=== PATIENT | female | born 1940 | race Caucasian/White ===

== ENCOUNTER 2019-05-20 10:19 | Outpatient (CLI) | payer MEDICARE ==
[2019-05-20 17:47] LABS: BASOPHILS % (AUTO) 0.9 %; EOSINOPHILS # (AUTO) 0.2 10^3/uL (0.0-0.7); HGB - HEMOGLOBIN 13.3 g/dL (12.0-16.0); LYMPHOCYTES # (AUTO) 2.1 10^3/uL (1.5-3.5); LYMPHOCYTES % (AUTO) 46.9 %; MEAN CORPUSCULAR HEMOGLOBIN 32.3 pg (27.0-31.0); MEAN CORPUSCULAR VOLUME 100.7 fL (81.0-99.0); MEAN PLATELET VOLUME 11.6 fL (7.9-10.8); MONOCYTES # (AUTO) 0.3 10^3/uL (0.0-1.0); NEUTROPHILS # (AUTO) 1.8 10^3/uL (1.5-6.6); PLT - PLATELET COUNT 166 10^3/uL (130-450); RED BLOOD COUNT 4.12 10^6/uL (4.20-5.40); RED CELL DISTRIBUTION WIDTH 12.9 % (12.0-15.0); WHITE BLOOD COUNT 4.6 x10^3/uL (4.8-10.8)
[2019-05-20 18:15] LABS: ALBUMIN 4.2 g/dL (3.2-5.5); ALBUMIN/GLOBULIN RATIO 1.6 (1.0-2.2); ALKALINE PHOSPHATASE 75 IU/L (42-121); ALT ALANINE AMINOTRANSFERASE 31 IU/L (10-60); AST ASPARTATE AMINOTRANSFERASE 28 IU/L (10-42); BILIRUBIN,TOTAL 0.9 mg/dL (0.2-1.0); BUN - BLOOD UREA NITROGEN 23 mg/dL (6-20); CALCIUM 9.8 mg/dL (8.5-10.3); CARBON DIOXIDE - CO2 27 mmol/L (21-32); CHLORIDE 108 mmol/L (101-111); CHOL/HDL RATIO 2.7 (<4.4); CHOLESTEROL 271 mg/dL; CREATININE 0.6 mg/dL (0.4-1.0); GFR - MDRD 96 (>89); GLUCOSE 99 mg/dL (70-100); HDL CHOLESTEROL 99 mg/dL; LDL CHOLESTEROL,CALCULATED 158 mg/dL; LDL/HDL RATIO 1.6 (<4.4); SODIUM 143 mmol/L (135-145); TOTAL PROTEIN 6.9 g/dL (6.7-8.2); VLDL CHOLESTEROL 14 mg/dL
[2019-05-20 18:19] LABS: THYROID STIMULATING HORMONE 1.15 uIU/mL (0.34-5.60)
[2019-05-20 18:21] LABS: FREE T4 (FREE THYROXINE) 0.81 ng/dL (0.58-1.64)
== END 2019-05-20 10:20 | disposition home or self-care (01) ==
LOC: LAB.S 10:19
PROVIDERS: ATTEND Physician Assistant
DX: R53.83 Other fatigue (principal); E78.2 Mixed hyperlipidemia; R73.01 Impaired fasting glucose; R06.09 Other forms of dyspnea
CPT/HCPCS: 36415; 80053; 80061; 83721; 84439; 84443; 85025

== ENCOUNTER 2019-06-09 11:02 | Outpatient (CLI) | payer MEDICARE | END 2019-06-09 11:03 | disposition home or self-care (01) | LOC: DI 11:02 | PROVIDERS: ATTEND Physician Assistant | DX: R06.00 Dyspnea, unspecified (principal); I07.1 Rheumatic tricuspid insufficiency | CPT/HCPCS: 93306 ==

== ENCOUNTER 2019-11-03 13:06 | Outpatient (CLI) | payer MEDICARE | END 2019-11-03 13:07 | disposition home or self-care (01) | LOC: DI 13:06 | PROVIDERS: ATTEND Internal Medicine Cardiovascular Disease | DX: I27.20 Pulmonary hypertension, unspecified (principal); I48.0 Paroxysmal atrial fibrillation; I49.3 Ventricular premature depolarization | CPT/HCPCS: 93306 ==

== ENCOUNTER 2020-09-30 10:42 | Outpatient (CLI) | payer MEDICARE ==
[2020-09-30] MEDS ORDERED: IOVERSOL 320 50 ML VIAL ONE (10:55)
[2020-09-30] MEDS ORDERED: IOVERSOL 320 100 ML VIAL IVP ONE ×2 (10:55→13:27)
[2020-09-30 11:12] LABS: BASOPHILS % (AUTO) 0.8 %; EOSINOPHILS # (AUTO) 0.1 10^3/uL (0.0-0.7); LYMPHOCYTES % (AUTO) 40.9 %; MEAN CORPUSCULAR HEMOGLOBIN 33.3 pg (27.0-31.0); MEAN CORPUSCULAR HGB CONC 33.7 g/dL (32.0-36.0); MEAN CORPUSCULAR VOLUME 98.8 fL (81.0-99.0); MEAN PLATELET VOLUME 10.1 fL (7.9-10.8); MONOCYTES # (AUTO) 0.3 10^3/uL (0.0-1.0); MONOCYTES % (AUTO) 6.7 %; NEUTROPHILS # (AUTO) 2.5 10^3/uL (1.5-6.6); NEUTROPHILS % (AUTO) 49.6 %; PLT - PLATELET COUNT 182 10^3/uL (130-450); RED CELL DISTRIBUTION WIDTH 12.2 % (12.0-15.0)
[2020-09-30 11:23] LABS: ALBUMIN 4.8 g/dL (3.2-5.5); ALBUMIN/GLOBULIN RATIO 1.8 (1.0-2.2); CALCIUM 10.2 mg/dL (8.5-10.3); CREATININE 0.8 mg/dL (0.4-1.0); TOTAL PROTEIN 7.5 g/dL (6.7-8.2)
--- NOTE | 2020-09-30 12:28 | CT Report ---
PROCEDURE: Abdomen/Pelvis W INDICATIONS: DISCOLORED URINE CONTRAST: IV CONTRAST: Optiray 320 ml: 100 PO CONTRAST: Optiray 320 ml50 TECHNIQUE: After the administration of oral and intravenous contrast, 5 mm thick sections acquired from the diap hragms to the symphysis. 5 mm thick coronal and sagittal reformats were acquired. For radiation dos e reduction, the following was used: automated exposure control, adjustment of mA and/or kV accordin g to patient size. COMPARISON: None. FINDINGS: Image quality: Excellent. ABDOMEN: Lung bases: Lung bases are clear. Heart size is normal. Solid organs: Liver and spleen are normal in size and enhancement. Gallbladder is unremarkable. Bi liary system is non dilated. Pancreas enhances normally. Probable small left adrenal adenoma measuri ng 1.2 cm. No right adrenal nodule. Kidneys demonstrate normal size and enhancement, without hydronep hrosis. Peritoneum and bowel: Bowel loops demonstrate normal wall thickness and caliber. No free fluid or a ir. Nodes and vessels: No retroperitoneal or mesenteric adenopathy by size criteria. Aorta and inferior vena cava are normal in size. Atherosclerotic calcifications. Miscellaneous: No ventral hernias. PELVIS: Genitourinary: Bladder wall thickness is normal. Miscellaneous: No inguinal hernias or adenopathy. Bones: No suspicious bony lesions. No vertebral body compression fractures. IMPRESSION: 1. Probable incidental 1.2 cm left adrenal nodule. 2. No significant abnormality identified involving the tract. 3. No evidence acute abdominal process. Reviewed by: Erik Larson MD on 09/30/2020 12:27 PM PST Approved by: Erik Larson MD on 09/30/2020 12:27 PM PST Station ID: [id number]
[2020-09-30] MEDS ORDERED: IOVERSOL 320 50 ML VIAL PO ONE (13:27)
== END 2020-09-30 10:43 | disposition home or self-care (01) ==
LOC: DI 10:42
PROVIDERS: ATTEND Nurse Practitioner Family
DX: R82.998 Other abnormal findings in urine (principal)
CPT/HCPCS: 36415; 74177; 80053; 85025; Q9967

== ENCOUNTER 2021-06-20 13:04 | Outpatient (CLI) | payer MEDICARE ==
[2021-06-20 15:19] LABS: CREATININE 0.8 mg/dL (0.4-1.0)
== END 2021-06-20 13:05 | disposition home or self-care (01) ==
LOC: LAB.S 13:04
DX: I48.0 Paroxysmal atrial fibrillation (principal)
CPT/HCPCS: 36415; 82565

== ENCOUNTER 2021-12-16 12:11 | Outpatient (CLI) | payer MEDICARE ==
[2021-12-16 16:56] LABS: CREATININE 0.8 mg/dL (0.4-1.0)
== END 2021-12-16 12:12 | disposition home or self-care (01) ==
LOC: LAB.S 12:11
PROVIDERS: ATTEND Nurse Practitioner Family
DX: I48.0 Paroxysmal atrial fibrillation (principal)
CPT/HCPCS: 36415; 82565

== ENCOUNTER 2022-07-26 15:19 | Outpatient (CLI) | payer MEDICARE ==
--- NOTE | 2022-07-27 09:50 | DEXA Report ---
PROCEDURE: Dexa Spine and/or Hip INDICATIONS: OSTEOPOROSIS TECHNIQUE: Bone densitometry of the lumbar spine and left hip was acquired. COMPARISON: None. FINDINGS: Lumbar spine bone mineral density 0.925 g percent meters squared, T score -2.1, osteopenia, change fr om previous 8.6%, significant Left hip bone mineral density 0.683 g percent meters squared, T score -2.6, osteoporosis, change from previous -8.8%, significant Left femoral neck bone mineral density 0.655 g/sq cm, T score -2.8, osteoporosis IMPRESSION: 1. Osteoporosis puts the patient at a high-risk of fracture. 2. Significant interval decrease in left hip bone mineral density compared to the prior study. 3. Significant interval increase in lumbar spine bone mineral density, potentially artifactually elev ated due to degenerative sclerosis. Reviewed by: Chelsie Gotti MD on 07/27/2022 8:48 AM OPAL Approved by: Chelsie Gotti MD on 07/27/2022 8:48 AM OPAL Station ID: [id number]
== END 2022-07-26 15:20 | disposition home or self-care (01) ==
LOC: DI 15:19
PROVIDERS: ATTEND Nurse Practitioner Family
DX: M81.0 Age-related osteoporosis without current pathological fracture (principal)